=== PATIENT | male | born 1955 | race African-American/Black ===

== ENCOUNTER 2018-02-05 23:36 | Emergency (ER) | payer SELFPAY ==
[~2018-02-05] VITALS: Ht 177.8 cm; Wt 81.6 kg
[~2018-02-05 23:36] MED LIST: ATENOLOL50 MG ORAL; GABAPENTIN300 MG ORAL; KEFLEX500 MG ORAL; NORCO 5-325 TA1 EACH ORAL
[2018-02-06] MEDS ORDERED: Ketorolac 60mg Inj IM ONE
[2018-02-06 00:05] VITALS: BP 138/96
[2018-02-06] MEDS ORDERED: IBUPROFEN600 MG ORAL (00:22)
[2018-02-06] MEDS ORDERED: HYDROCODON-ACE1 EA15 ORAL (00:22)
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
[2018-02-06 01:42] VITALS: BP 135/92
[2018-02-06 01:44] VITALS: BP 135/92
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
== END 2018-02-06 01:44 | disposition home or self-care (01) ==
LOC: EMR 23:59
DX: S39.012A Strain of muscle, fascia and tendon of lower back, initial encounter (principal); S46.912A Strain of unspecified muscle, fascia and tendon at shoulder and upper arm level, left arm, initial encounter; V43.52XA Car driver injured in collision with other type car in traffic accident, initial encounter; Y92.481 Parking lot as the place of occurrence of the external cause; I10 Essential (primary) hypertension
CPT/HCPCS: 72110; 96372; 99284

== ENCOUNTER 2018-11-01 13:37 | Emergency (ER) | payer OTHER ==
[~2018-11-01] VITALS: Ht 177.8 cm; Wt 83.9 kg
[~2018-11-01 13:37] MED LIST changes: +HYDROCODON-ACE1 EA15 ORAL; +IBUPROFEN600 MG ORAL
[2018-11-01 13:48] VITALS: BP 137/90
--- NOTE | 2018-11-01 13:54 | NUR ---
ED Nurse Note: PT WALKED IN TO ER TODAY FROM HOME. AOX4. PT C/O RIGHT KNEE PAIN, 9/10 X YESTERDAY. PT DENIES INJURY OR TRAUMA. FULL ROM OF EXTREMITY, CIRCULATION AND SENSATION INTACT, CAP REFILL <3 SECONDS, MUSCLE STRENGTH 5/5 AND STEADY GAIT.
--- NOTE | 2018-11-01 14:00 | Emergency Room Report ---
History of Present Illness General Chief Complaint: Lower Extremity Injury Source: Patient Present Illness HPI 62 YO Male presents to the ED c/o 03/24 in severity right knee pain and swelling x 2 days. no fevers, chills, or recent open wounds/ trauma. Denies hx of gout. Denies erythema. exacerbated with standing and flexion. Denies numbness tingling or loss of sensation or gross motor movements of the extremities, incontinence of bowel or bladder. Denies CP, Palpitations, LOC, AMS , dizziness, Changes in Vision, weakness or a sudden severe headache. 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 Allergies: Coded Allergies: NO KNOWN DRUG ALLERGIES (Verified Allergy, Unknown, 07/27/15) Patient History Past Medical History: see triage record Past Surgical History: none Pertinent Family History: none Reviewed Nursing Documentation: PMH: Agreed; PSxH: Agreed Nursing Documentation-PMH Past Medical History: No History, Except For Hx Hypertension: Yes Hx Neurological Problems: Yes - Sciatica, Arthritis Review of Systems All Other Systems: negative except mentioned in HPI Physical Exam Vital Signs Date Time Temp Pulse Resp B/P (MAP) Pulse Ox O2 Delivery O2 Flow Rate FiO2 11/01/18 13:48 98.1 92 18 137/90 98 Room Air Sp02 EP Interpretation: reviewed, normal General Appearance: no apparent distress, alert, GCS 15, non-toxic Head: normocephalic, atraumatic Eyes: bilateral eye normal inspection, bilateral eye PERRL ENT: hearing grossly normal, normal voice Neck: full range of motion Respiratory: lungs clear, normal breath sounds, speaking full sentences Cardiovascular #1: regular rate, rhythm Musculoskeletal: back normal, gait/station normal, normal range of motion, swelling - right knee , tender - anterior and lateral right knee, no increased laxity, no clicking, FROM with pain when bending. Neurologic: alert, oriented x3, responsive, motor strength/tone normal, sensory intact, normal gait, speech normal, grossly normal Psychiatric: judgement/insight normal Skin: normal color, no rash, warm/dry, well hydrated, other - no erythema, warmth or bruising. Medical Decision Making PA Attestation Dr. Queen is my supervising Physician whom patient management has been discussed with. Diagnostic Impression: Primary Impression: Effusion of knee joint right ER Course Pt. presents to the ED c/o 8/10 in severity right knee pain and swelling x 2 days. no fevers, chills, or recent open wounds/ trauma. Denies hx of gout. Denies erythema. exacerbated with standing and flexion. Denies numbness tingling or loss of sensation or gross motor movements of the extremities, incontinence of bowel or bladder. Denies CP, Palpitations, LOC, AMS, dizziness, Changes in Vision, weakness or a sudden severe headache. 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 Ddx considered but are not limited to Fracture, dislocation, contusion, Sprain/ Strain/Spasm, Septic joint, meniscal injury just to name a few. Vital signs: are WNL, pt. is afebrile H&PE are most consistent with musculoskeletal injury will perform imaging to r/ o fractures/dislocations. ORDERS: - X-ray RIGHT KNEE 3 VIEWS - negative for fx, Dislocation, or significant soft tissue injury, per preliminary read in ED, and signed by NOLA Haas , my supervising physician has reviewed, and agrees with my interpretation. ED INTERVENTIONS: - NORCO PO -Melo wrap applied to the right knee by morgue technician. Pt. remains neurovascularly intact. -Patient is provided with crutches and instructed on their use d/w pt. conservative treatment, and to follow up with a primary care provider. pt given a list of primary care clinics for follow up. d/w pt. to return to the ED with worsening or new symptoms. DISCHARGE: At this time pt. is stable for d/c to home. Will provide printed patient care instructions, and any necessary prescriptions. Care plan and follow up instructions have been discussed with the patient prior to discharge. Other X-Ray Diagnostic Results Other X-Ray Diagnostic Results : X-Ray ordered: Right knee # of Views/Limited Vs Complete: 3 View Indication: Swelling EP Interpretation: Yes NOLA Xray: Interpretation reviewed, by supervising MD, and agrees with findings. Interpretation: no dislocation, no fractures, other - effusion noted. Impression: No acute disease Electronically Signed by: Kati Haas PA-C Last Vital Signs Date Time Temp Pulse Resp B/P (MAP) Pulse Ox O2 Delivery O2 Flow Rate FiO2 11/01/18 13:48 98.1 92 18 137/90 98 Room Air Status: improved Disposition: HOME, SELF-CARE Condition: Stable Scripts Ibuprofen* (MOTRIN*) 600 Mg Tablet 600 MG ORAL THREE TIMES A DAY, #30 TAB 0 Refills Prov: Ktai Haas 11/01/18 Hydrocodone Bit/Acetaminophen 5-325* (NORCO 5-325*) 1 Each Tablet 1 TAB ORAL Q6H PRN for For Pain, #9 TAB 0 Refills Prov: Kati Haas 11/01/18 Departure Forms: Return to Work Return to Work Date: Nov 04, 2018 Work Restrictions: No Heavy Lifting, No Prolonged Standing Other Restrictions: light duty, limited bending. May return Sooner if Symptoms have resolved. Return to Full Activity: Nov 08, 2018 Patient Instructions: Knee Effusion, [id number] Additional Instructions: Take medications as directed. Follow up with an [employer] CONSULTANT in 3-5 days, even if your symptoms have resolved. If symptoms persist MRI may be required at the discretion of your PCP or Ortho Specialist. --Please review list of primary care clinics, if you do not already have a primary care provider who can give you an Orthopedic Referral. Return sooner to ED if new symptoms occur, or current symptoms become worse. Do not drink alcohol, drive, or operate heavy machinery while taking [place] as this may cause drowsiness. - Please note that this Emergency Department Report was dictated using [employer] Mediaresp[employer] coordinator technology software, occasionally this can lead to erroneous entry secondary to interpretation by the dictation equipment. Kati Haas Nov 01, 2018 14:00
--- NOTE | 2018-11-01 14:14 | NUR ---
ED Nurse Note: XRAY AT BEDSIDE.
[2018-11-01] MEDS ORDERED: HYDROcodone/Acetamin 5/325 tab ORAL ONE (14:15)
[2018-11-01] MEDS ORDERED: NORCO 5-325 TA1 EACH ORAL (14:56)
[2018-11-01] MEDS ORDERED: IBUPROFEN600 MG ORAL (14:56)
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
--- NOTE | 2018-11-01 15:09 | NUR ---
ED Nurse Note: PT SITTING PEACEFULLY IN BED IN NAD. AOX4. PRESCRIPTIONS AND DISCHARGE PAPERWORK EXPLAINED TO PT. PT VERBALIZES UNDERSTANDING AND ALL QUESTIONS ANSWERED. PRESCRIPTIONS AND DISCHARGE PAPERWORK GIVEN TO PT AND ID WRISTBAND REMOVED. PT WALKED OUT OF ER WITH STEADY GAIT UTILIZING PROPER CRUTCHES TECHNIQUE AND ALL BELONGINGS.
--- NOTE | 2018-11-01 16:04 | Diagnostic Imaging Report ---
Indication: Pain, status post fall Technique: 3 views of the right knee Comparison: None Findings: No acute fractures. No dislocations. The joint spaces are preserved. No suprapatellar effusion. Impression: Negative
== END 2018-11-01 15:09 | disposition home or self-care (01) ==
LOC: EMR 14:25
DX: M25.461 Effusion, right knee (principal); M25.561 Pain in right knee; I10 Essential (primary) hypertension
CPT/HCPCS: 99283